=== PATIENT | male | born 1980 | race Caucasian/White ===

== ENCOUNTER 2018-09-08 01:08 | Emergency (ER) | payer MEDICAID ==
[~2018-09-08] VITALS: Ht 170.2 cm; Wt 81.0 kg
[~2018-09-08 01:08] MED LIST: HYDR-4383 PO; OMEP40CA37 PO
[2018-09-08 01:10] VITALS: BP 143/83
== END 2018-09-08 07:22 | disposition left against medical advice (07) ==
LOC: ER 01:08
DX: M25.562 Pain in left knee (principal); Z79.899 Other long term (current) drug therapy; Z53.21 Procedure and treatment not carried out due to patient leaving prior to being seen by health care provider

== ENCOUNTER 2018-09-09 01:41 | Emergency (ER) | payer MEDICAID ==
[~2018-09-09] VITALS: Ht 170.2 cm; Wt 75.9 kg
[2018-09-09 01:44] VITALS: BP 143/88
== END 2018-09-09 03:49 | disposition home or self-care (01) ==
LOC: ER 01:42
DX: M25.562 Pain in left knee (principal); G89.29 Other chronic pain; F15.90 Other stimulant use, unspecified, uncomplicated; Z79.899 Other long term (current) drug therapy
CPT/HCPCS: 73564; 99283

== ENCOUNTER 2018-11-01 20:31 | Emergency (ER) | payer MEDICAID ==
[~2018-11-01] VITALS: Ht 170.2 cm; Wt 87.7 kg
[2018-11-02] MEDS ORDERED: SULF1TAB49 PO (00:24)
[2018-11-02] MEDS ORDERED: CEPH-572 PO (00:24)
[2018-11-02 00:35] VITALS: BP 151/90
== END 2018-11-02 00:40 | disposition home or self-care (01) ==
LOC: ER 20:32
DX: S91.331A Puncture wound without foreign body, right foot, initial encounter (principal); G89.29 Other chronic pain; F12.90 Cannabis use, unspecified, uncomplicated; F15.90 Other stimulant use, unspecified, uncomplicated; Z79.899 Other long term (current) drug therapy; W45.0XXA Nail entering through skin, initial encounter; W22.8XXA Striking against or struck by other objects, initial encounter; Y93.39 Activity, other involving climbing, rappelling and jumping off; Y92.89 Other specified places as the place of occurrence of the external cause; Y99.8 Other external cause status
CPT/HCPCS: 73630; 99283

== ENCOUNTER 2019-02-05 21:26 | Emergency (ER) | payer MEDICAID, OTHER ==
[~2019-02-05] VITALS: Ht 170.2 cm; Wt 84.1 kg
[~2019-02-05 21:26] MED LIST changes: +OMEP40CA13 PO; -OMEP40CA37 PO
[2019-02-06] MEDS ORDERED: ketorolac trometh inj. 60 MG/2 ML VIAL IM ONE (00:05)
[2019-02-06] MEDS ORDERED: HYDROmorphone 2mg tablet PO ONE (00:05)
[2019-02-06] MEDS ORDERED: triamcinolone acetonide 40mg/ml inj IM ONE (00:05)
[2019-02-06] MEDS ORDERED: cyclobenzaprine 10mg tablet PO ONE (00:05)
[2019-02-06] MEDS ORDERED: diazepam 5mg tablet PO ONE (01:00)
[2019-02-06] MEDS ORDERED: CYCL-1 PO (01:04)
[2019-02-06] MEDS ORDERED: NAPR-56 PO (01:04)
[2019-02-06] MEDS ORDERED: HYDR-4353 PO (01:04)
[2019-02-06 01:25] VITALS: BP 128/81
== END 2019-02-06 01:27 | disposition home or self-care (01) ==
LOC: ER 21:27
DX: M99.53 Intervertebral disc stenosis of neural canal of lumbar region (principal); M62.830 Muscle spasm of back; G89.29 Other chronic pain; F12.90 Cannabis use, unspecified, uncomplicated; F15.90 Other stimulant use, unspecified, uncomplicated; Z79.899 Other long term (current) drug therapy
CPT/HCPCS: 72131; 96372; 99284; J1885; J3301; 96361; 96374; 96375; J7030

== ENCOUNTER 2019-02-18 11:00 | Emergency (ER) | payer OTHER ==
[~2019-02-18] VITALS: Ht 170.2 cm; Wt 84.5 kg
[~2019-02-18 11:00] MED LIST changes: +CYCL-1 PO; +NAPR-56 PO
[2019-02-18] MEDS ORDERED: ketorolac tromethamine 15mg/ml inj. IM ONE (13:00)
[2019-02-18] MEDS ORDERED: orphenadrine citrate 60mg/2ml inj. IM ONE (13:00)
[2019-02-18 15:02] VITALS: BP 127/69
== END 2019-02-18 15:17 ==
LOC: ER 11:00 → EEVIPCON 11:00 → ER 15:17
DX: G89.29 Other chronic pain (principal); M54.5 Low back pain; F12.90 Cannabis use, unspecified, uncomplicated; F15.90 Other stimulant use, unspecified, uncomplicated; Z79.899 Other long term (current) drug therapy
CPT/HCPCS: 72148; 96372; 99284; J1885; J2360

== ENCOUNTER 2022-02-04 23:59 | Emergency (ER) | payer MEDICAID, OTHER ==
[~2022-02-04] VITALS: Ht 170.2 cm; Wt 79.7 kg
[~2022-02-04 23:59] MED LIST changes: -NAPR-56 PO; -OMEP40CA13 PO; +OMEP40CA21 PO
[2022-02-05 00:06] VITALS: BP 123/90
== END 2022-02-05 02:31 | disposition left against medical advice (07) ==
LOC: ER 02-05
DX: S61.419A Laceration without foreign body of unspecified hand, initial encounter (principal); Z53.21 Procedure and treatment not carried out due to patient leaving prior to being seen by health care provider; X58.XXXA Exposure to other specified factors, initial encounter; Y93.89 Activity, other specified; Y92.89 Other specified places as the place of occurrence of the external cause; Y99.8 Other external cause status

== ENCOUNTER 2023-04-28 14:12 | Emergency (ER) | payer MEDICAID ==
[~2023-04-28] VITALS: Ht 170.2 cm; Wt 70.5 kg
[2023-04-28] MEDS ORDERED: ORPH100T4 PO (22:55)
[2023-04-28] MEDS ORDERED: IBUP-1984 PO (22:55)
[2023-04-28] MEDS ORDERED: PRED50TA PO (22:55)
[2023-04-28] MEDS ORDERED: ketorolac tromethamine 15mg/ml inj. IM ONE (22:55)
[2023-04-28] MEDS ORDERED: orphenadrine citrate 60mg/2ml inj. IM ONE (22:55)
[2023-04-28] MEDS ORDERED: predniSONE 20 mg tablet PO ONE (22:55)
[2023-04-28 23:17] VITALS: BP 118/80; PULSE 68; RESP 16; TEMP 98.6; O2SAT 99
== END 2023-04-28 23:19 | disposition home or self-care (01) ==
LOC: ER 14:12
DX: M54.59 Other low back pain (principal); F17.200 Nicotine dependence, unspecified, uncomplicated; F12.10 Cannabis abuse, uncomplicated; F15.10 Other stimulant abuse, uncomplicated; Z79.899 Other long term (current) drug therapy
CPT/HCPCS: 96372; 99284; J1885; J2360; J7512

== ENCOUNTER 2023-10-24 19:46 | Emergency (ER) | payer MEDICAID ==
[~2023-10-24] VITALS: Ht 170.2 cm; Wt 70.0 kg
[~2023-10-24 19:46] MED LIST changes: +ORPH100T4 PO; +PRED50TA PO
[2023-10-24 19:52] VITALS: TEMP 98.2
[2023-10-24] MEDS: TETanus/Pertussis (Acell)/Diphther VAC/PF (Tdap-Adult) 0.5ml syringe IMVAC ONE (20:29)
[2023-10-24] MEDS: LIDOcaine 1% W/epiNEPHrine 1:100,000 20ml vial IJ ONE (20:29)
[2023-10-24] MEDS ORDERED: CEPH-585 PO (21:10)
[2023-10-24] MEDS: cephalexin 500mg capsule PO ONE (21:18)
[2023-10-24 21:49] VITALS: BP 142/80; PULSE 85; RESP 18; O2SAT 99
== END 2023-10-24 21:50 | disposition home or self-care (01) ==
LOC: ER 19:46
DX: S61.214A Laceration without foreign body of right ring finger without damage to nail, initial encounter (principal); G89.29 Other chronic pain; M54.9 Dorsalgia, unspecified; F12.90 Cannabis use, unspecified, uncomplicated; F15.90 Other stimulant use, unspecified, uncomplicated; Z79.899 Other long term (current) drug therapy; Y93.39 Activity, other involving climbing, rappelling and jumping off; Y93.89 Activity, other specified; Y92.89 Other specified places as the place of occurrence of the external cause; Y99.8 Other external cause status
CPT/HCPCS: 12001; 73140; 99283; 99284; A6449